=== PATIENT | male | born 1985 | race Caucasian/White ===

== ENCOUNTER 2016-02-29 10:11 | Inpatient (IN) | payer OTHER ==
[~2016-02-29] VITALS: Wt 56.5 kg
[2016-02-29] MEDS ORDERED: SOD CHLORIDE 0.9% 1,000 ML IV STA ×2 (10:47)
[2016-02-29] MEDS ORDERED: HYDROmorphONE 1 MG/ML SYG IV STA (10:47)
[2016-02-29] MEDS ORDERED: ONDANSETRON 4 MG INJ IV STA (10:47)
[2016-02-29 11:05] LABS: EOSINOPHILS % 0.1 % (0.0-7.0); HEMATOCRIT 51.7 % (42.0-52.0); HEMOGLOBIN 17.3 g/dl (14.0-18.0); LYMPHOCYTES # 2.2 10^3/ul (0.8-2.9); LYMPHOCYTES % 13.8 % (15.0-51.0); MEAN CORPUSCULAR HEMOGLOBIN 30.6 pg (29.0-33.0); MEAN CORPUSCULAR HGB CONC 33.4 g/dl (32.0-37.0); MEAN CORPUSCULAR VOLUME 91.4 fl (82.0-101.0); MEAN PLATELET VOLUME 8.9 fl (7.4-10.4); MONOCYTE # 0.7 10^3/ul (0.3-0.9); MONOCYTES % 4.4 % (0.0-11.0); NEUTROPHIL # 12.9 10^3/ul (1.6-7.5); NEUTROPHILS % 81.7 % (39.0-77.0); PLATELET COUNT 303 10^3/UL (140-440); RED BLOOD COUNT 5.66 10^6/ul (4.70-6.10); RED CELL DISTRIBUTION WIDTH 12.7 % (11.5-14.5); UNCORRECTED WBC 15.8 10^3/ul (4.8-10.8); WHITE BLOOD COUNT 15.8 10^3/ul (4.8-10.8)
[2016-02-29 11:07] LABS: CONDITION 1
[2016-02-29 11:23] LABS: ALBUMIN 5.2 g/dl (3.3-4.9)
[2016-02-29 11:24] LABS: POTASSIUM 5.8 mmol/L (3.5-5.1)
[2016-02-29 11:26] LABS: ALBUMIN/GLOBULIN RATIO 1.26; BILIRUBIN,INDIRECT 0.9 mg/dl (0-1.1); BILIRUBIN,TOTAL 0.9 mg/dl (0.2-1.3); CALCIUM 10.6 mg/dl (8.4-10.2); CREATININE 1.42 mg/dl (0.61-1.24); TOTAL PROTEIN 9.3 g/dl (6.1-8.1)
[2016-02-29] MEDS ORDERED: INSULIN REGULAR, HUMAN 100 UNIT/1 ML 3ML VIAL IV STA (11:37)
[2016-02-29] MEDS ORDERED: INSULIN REGULAR, HUMAN 100 UNIT in SOD CHLORIDE 0.9% 99 ML IV STA ×2 (11:37)
[2016-02-29] MEDS ORDERED: LANT3I SC (11:42)
[2016-02-29] MEDS ORDERED: INSU100C SQ (11:42)
[2016-02-29 12:17] LABS: ADD UMIC NO; URINE BILIRUBIN (Dip) NEGATIVE (NEGATIVE); URINE BLOOD (Dip) NEGATIVE (NEGATIVE); URINE COLOR LT. YELLOW (YELLOW); URINE GLUCOSE (Dip) NEGATIVE (NEGATIVE); URINE KETONES (Dip) 3+ (NEGATIVE); URINE LEUKOCYTE ESTERASE (Dip) NEGATIVE (NEGATIVE); URINE NITRITE (Dip) NEGATIVE (NEGATIVE); URINE TOTAL PROTEIN (Dip) NEGATIVE (NEGATIVE); URINE UROBILINOGEN (Dip) 0.2 E.U./dL (0.1-1.0)
--- NOTE | 2016-02-29 12:33 | RADRPT ---
PROCEDURE: CT Abdomen and Pelvis without contrast. CLINICAL INDICATION: Epigastric pain for 3 days with nausea and vomiting. TECHNIQUE: Multiple contiguous axial CT images of the abdomen and pelvis were obtained without the administration of intravenous contrast. Coronal and sagittal reconstructions were also performed. CTDIvol (mGy): 4.61; Total Exam DLP (mGy-cm): 253.38. One or more of the following dose reduction techniques were utilized: - Automated exposure control. - Adjustment of the mA and/or kV according to patient size. - Use of iterative reconstruction technique. COMPARISON: None. FINDINGS: Limited imaging of the lower thorax is unremarkable. The liver and spleen are homogeneous in density. The liver is diffusely low in attenuation compatibl e with fatty infiltration. The gallbladder, pancreas and adrenal glands are unremarkable. The kidneys are symmetric in size. There are no nephroureteral stones. There is no hydronephrosis o r abnormal perinephric inflammation. The abdominal aorta is normal in caliber. There is no periaortic / retroperitoneal lymphadenopathy. The stomach and small and large intestines are unremarkable. The appendix is not visualized. There are no focal inflammatory changes of the mesentery. There is no mesenteric lymphadenopathy. There is no ascites. The bladder, prostate and seminal vesicles are unremarkable. There is no free pelvic fluid. There i s no pelvic sidewall or inguinal lymphadenopathy. Skeletal structures are unremarkable. There is mild focal skin thickening with underlying fat stran ding and calcification within the subcutaneous soft tissues of the left mid abdomen. IMPRESSION: No evidence of abdominopelvic mass, lymphadenopathy or acute inflammatory pathology. Focal skin thickening with underlying fat stranding and calcification which may reflect evolving bharathi nges of fat necrosis. Correlate clinically for history of trauma and presence of palpable abnormali ty within this area. Clinical follow-up advised. RPTAT: HLST .Sabrina Segovia MD, MD Date Time Electronically viewed and signed by .Sabrina Segovia MD, on 02/29/2016 12:33 .T/
[2016-02-29] MEDS ORDERED: SOD CHLORIDE 0.9% 1,000 ML IV ONE (14:00)
--- NOTE | 2016-02-29 14:52 | ERA ---
ER Documentation Chief Complaint Date/Time DATE: 02/29/16 TIME: 14:31 Chief Complaint EPIGASTRIC PAIN FOR 2 DAYS. NO DIARRHEA. BS 526 IN TRIAGE HPI This is a 30-year-old insulin-dependent diabetic is complaining of 2 days of intractable nausea and vomiting with green bilious vomitus today. He says he has pain in the epigastric region is constant and dull. Is having 1 or 2 bouts of loose stool as well but nonbloody. No blood in his vomit. The patient says that he has not taken insulin today because he is afraid to because he is vomiting so much that he will get hypoglycemic if he can keep down food. He says he has never been in DKA. No headache no fever no chest pain cough no dysuria ROS All systems reviewed and are negative except as per history of present illness. Medications Home Meds Reported Medications Insulin Lispro (Humalog) 100 Unit/1 Ml Cartridge, 2-15 UNIT SQ AC MEALS 02/29/16 Insulin Glargine* (Lantus*) 100 Unit/Ml Soln, 40 UNIT SC QAM, #1 VIAL 02/29/16 Allergies Allergies: Coded Allergies: No Known Allergy (Unverified , 02/29/16) PMhx/Soc History of Surgery: Yes (appendix) Anesthesia Reaction: No Hx Neurological Disorder: No Hx Respiratory Disorders: No Hx Cardiac Disorders: No Hx Psychiatric Problems: No Hx Miscellaneous Medical Probl: Yes (dm) Hx Alcohol Use: No Hx Substance Use: No Hx Tobacco Use: No Smoking Status: Never smoker FmHx Family History: No coronary disease Physical Exam Vitals Vital Signs Date Time Temp Pulse Resp B/P Pulse Ox O2 Delivery O2 Flow Rate FiO2 02/29/16 14:00 18 123/85 02/29/16 10:17 97.9 130 24 103/56 98 Physical Exam Const: Well-developed, well-nourished Head: Atraumatic, normocephalic Eyes: Normal Conjunctiva, PERRLA, EOMI, normal sclera, no nystagmus ENT: Normal External Ears, Nose and Mouth, slightly dry mucus membranes. Neck: Full range of motion. No meningismus, no lymphadenopathy. Resp: Clear to auscultation bilaterally, no wheezing, rhonchi, rales Cardio: Tachycardia, no murmurs, S1 S2 present Abd: Soft, moderate epigastric tenderness non distended. Normal bowel sounds, no guarding or rebound, no pulsitile abdominal masses or bruits Skin: No petechiae or rashes, no ecchymosis , no maculopapular rash Back: No midline or flank tenderness Ext: No cyanosis, or edema, FROM x 4, normal inspection, neurovascularly intact x 4 Neur: Awake and alert, STR 5/5 x 4, sensation intact x 4, no focal findings, cerebellum intact Psych: Normal Mood and Affect Result Diagram: 02/29/16 1045 02/29/16 1225 Results 24 hrs Laboratory Tests Test 02/29/16 10:18 02/29/16 10:45 02/29/16 11:15 02/29/16 12:25 Bedside Glucose 526mg/dL Alanine Aminotransferase (ALT/SGPT) 41IU/L Albumin 5.2g/dl Albumin/Globulin Ratio 1.26 Alkaline Phosphatase 132IU/L Anion Gap 43 Aspartate Amino Transf (AST/SGOT) 32IU/L Basophils # 0.010^3/ul Basophils % 0.0% Blood Urea Nitrogen 44mg/dl Calcium Level 10.6mg/dl Carbon Dioxide Level 10mmol/L Chloride Level 93mmol/L Creatinine 1.42mg/dl Direct Bilirubin 0.00mg/dl Eosinophils # 0.010^3/ul Eosinophils % 0.1% Globulin 4.10g/dl Glucose Level 599mg/dl Hematocrit 51.7% Hemoglobin 17.3g/dl Indirect Bilirubin 0.9mg/dl Lipase 15U/L Lymphocytes # 2.210^3/ul Lymphocytes % 13.8% Mean Corpuscular Hemoglobin 30.6pg Mean Corpuscular Hemoglobin Concent 33.4g/dl Mean Corpuscular Volume 91.4fl Mean Platelet Volume 8.9fl Monocytes # 0.710^3/ul Monocytes % 4.4% Neutrophils # 12.910^3/ul Neutrophils % 81.7% Nucleated Red Blood Cells # 0.010^3/ul Nucleated Red Blood Cells % 0.0/100WBC Platelet Count 35873^3/UL Potassium Level 5.8mmol/L 5.0mmol/L Red Blood Count 5.6610^6/ul Red Cell Distribution Width 12.7% Sodium Level 140mmol/L Total Bilirubin 0.9mg/dl Total Protein 9.3g/dl White Blood Count 15.810^3/ul Urine Bilirubin NEGATIVE Urine Clarity CLEAR Urine Color LT. YELLOW Urine Glucose NEGATIVE% Urine Hemoglobin NEGATIVE Urine Ketones 3+ Urine Leukocyte Esterase NEGATIVE Urine Nitrite NEGATIVE Urine Specific [place] 1.025 Urine Total Protein NEGATIVE Urine Urobilinogen 0.2 E.U./dL Urine pH 5.5 Test 02/29/16 13:44 Bedside Glucose 500mg/dL Current Medications Medications (Trade) Dose Ordered Sig/Ena Route PRN Reason Start Time Stop Time Status Last Admin Dose Admin Sodium Chloride (NS) 1,000 ml @ 1,000 mls/hr Q1H STAT IV 02/29/16 10:47 02/29/16 11:46 DC 02/29/16 11:11 Hydromorphone HCl (Dilaudid) 1 mg ONCE STAT IV 02/29/16 10:47 02/29/16 10:49 DC 02/29/16 11:11 Ondansetron HCl 4 mg 4 mg ONCE STAT IV 02/29/16 10:47 02/29/16 10:49 DC 02/29/16 11:11 Sodium Chloride (NS) 1,000 ml @ 1,000 mls/hr Q1H STAT IV 02/29/16 10:47 02/29/16 11:46 DC 02/29/16 12:32 Insulin Human Regular 8 unit 8 unit ONCE STAT IV 02/29/16 11:37 02/29/16 11:41 DC 02/29/16 12:01 Insulin Human Regular 100 unit/ Sodium Chloride 100 ml @ 5.65 mls/hr TITRATE STAT IV 02/29/16 11:37 03/01/16 05:18 02/29/16 12:32 Sodium Chloride (NS) 1,000 ml @ 1,000 mls/hr Q1H ONCE IV 02/29/16 14:00 02/29/16 14:59 02/29/16 13:59 Procedures/MDM PROCEDURE: CT Abdomen and Pelvis without contrast. CLINICAL INDICATION: Epigastric pain for 3 days with nausea and vomiting. TECHNIQUE: Multiple contiguous axial CT images of the abdomen and pelvis were obtained without the administration of intravenous contrast. Coronal and sagittal reconstructions were also performed. CTDIvol (mGy): 4.61; Total Exam DLP (mGy-cm): 253.38. One or more of the following dose reduction techniques were utilized: - Automated exposure control. - Adjustment of the mA and/or kV according to patient size. - Use of iterative reconstruction technique. COMPARISON: None. FINDINGS: Limited imaging of the lower thorax is unremarkable. The liver and spleen are homogeneous in density. The liver is diffusely low in attenuation compatible with fatty infiltration. The gallbladder, pancreas and adrenal glands are unremarkable. The kidneys are symmetric in size. There are no nephroureteral stones. There is no hydronephrosis or abnormal perinephric inflammation. The abdominal aorta is normal in caliber. There is no periaortic / retroperitoneal lymphadenopathy. The stomach and small and large intestines are unremarkable. The appendix is not visualized. There are no focal inflammatory changes of the mesentery. There is no mesenteric lymphadenopathy. There is no ascites. The bladder, prostate and seminal vesicles are unremarkable. There is no free pelvic fluid. There is no pelvic sidewall or inguinal lymphadenopathy. Skeletal structures are unremarkable. There is mild focal skin thickening with underlying fat stranding and calcification within the subcutaneous soft tissues of the left mid abdomen. IMPRESSION: No evidence of abdominopelvic mass, lymphadenopathy or acute inflammatory pathology. Focal skin thickening with underlying fat stranding and calcification which may reflect evolving changes of fat necrosis. Correlate clinically for history of trauma and presence of palpable abnormality within this area. Clinical follow- up advised. RPTAT: HLST .Sabrina Segovia MD, MD Date Time Electronically viewed and signed by .Sabrina Segovia MD, MD on 02/29/2016 12:33 .T/ CC: LEIGHTON FOOTE DO Patient's potassium was repeated and came back at 5.0. Patient has a CO2 of 10 with elevated glucose Urine ketones +3, serum acetone pending. Patient was started on insulin and insulin drip for DKA. Critical Care: Time: 30 minutes Treatments/Evaluations: Close monitoring and treatment of unstable vital signs, cardiorespiratory, and neurologic status, while maintaining tight balance of fluid, respiratory, and cardiac interventions. Departure Diagnosis: Primary Impression: Diabetic ketoacidosis Qualified Code: E10.10 - Diabetic ketoacidosis without coma associated with type 1 diabetes mellitus Condition: LEIGHTON Dc DO Feb 29, 2016 14:52
[2016-02-29] MEDS ORDERED: SOD CHLORIDE 0.9% 1,000 ML IV SCH (16:15)
[2016-02-29] MEDS: DEXTROSE 5%-0.45% NACL 1,000 ML IV SCH (16:15)
[2016-02-29] MEDS ORDERED: DEXTROSE 50% 50 ML SYRINGE IV PRN ×2 (16:30)
[2016-02-29] MEDS ORDERED: ONDANSETRON 4 MG INJ IV PRN (16:30)
[2016-02-29] MEDS: ACCUCHECK XX SCH ×8 (17:07→23:30)
[2016-02-29 17:46] LABS: POTASSIUM 4.8 mmol/L (3.5-5.1)
[2016-02-29 17:49] LABS: CALCIUM 8.6 mg/dl (8.4-10.2); CREATININE 0.99 mg/dl (0.61-1.24)
[2016-02-29 17:50] LABS: MAGNESIUM 2.1 mg/dl (1.7-2.5); PHOSPHORUS 3.8 mg/dl (2.5-4.9)
[2016-02-29] MEDS: INSULIN REGULAR, HUMAN 100 UNIT in SOD CHLORIDE 0.9% 99 ML IV SCH ×2 (19:41)
[2016-02-29] MEDS: DOCUSATE SODIUM 100 MG CAP PO SCH (21:00)
[2016-02-29 21:14] LABS: POTASSIUM 4.5 mmol/L (3.5-5.1)
[2016-02-29 21:17] LABS: CALCIUM 8.8 mg/dl (8.4-10.2); CREATININE 0.84 mg/dl (0.61-1.24)
[2016-02-29] MEDS: FAMOTIDINE 20 MG INJ IV SCH (21:44)
--- NOTE | 2016-02-29 22:54 | HP ---
DATE OF ADMISSION: 02/29/2016 PRESENTING COMPLAINT: Epigastric pain, nausea, and vomiting for the last 3 days. HISTORY OF PRESENT ILLNESS: Walter is a 30-year-old male with a medical history only of insulin-depe ndent diabetes mellitus who presents to the emergency room with complaints of epigastric pain, nause a, and vomiting that has been worsening over the last couple of days. He was also found to have priscila vated blood sugars in triage. The patient states that he has not been taking his insulin because of the intractable nausea and vomiting and, at home, he is only on Lantus 40 units per day. He has al so had 1 or 2 episodes of diarrhea. He has had no fever. Denies chest pain, shortness of breath, o r palpitations. PAST MEDICAL HISTORY: Positive for diabetes mellitus, insulin dependent. PAST SURGICAL HISTORY: Positive only for an appendectomy. ALLERGIES: HE HAS NO KNOWN DRUG ALLERGIES. SOCIAL HISTORY: Denies tobacco, alcohol, or illicit drug use. FAMILY HISTORY: Positive for diabetes mellitus. REVIEW OF SYSTEMS: I did a 12-point review of system and pertinent findings as noted in the HPI. PHYSICAL EXAMINATION: VITAL SIGNS: Temperature 97.9, heart rate is in the 110s, respirations 18, blood pressure 123/85. Saturations 98% on room air. GENERAL: I found a young male who was alert and oriented. He was in no distress. HEENT: Head is normocephalic. Pupils are equal and reactive. There was no scleral jaundice. No c onjunctival pallor. Mucous membranes were slightly dry. The posterior pharynx was clear of erythem a or exudate. NECK: Supple. CHEST: Clear. CARDIOVASCULAR: S1 and S2, slightly tachycardic without murmurs. ABDOMEN: Soft, nontender, distended with normoactive bowel sounds. EXTREMITIES: No lower extremity edema. NEUROLOGIC: No focal deficits. SKIN: Devoid of rash or jaundice. LABORATORY VALUES: He had a leukocytosis of 15,000. His hemoglobin was elevated at 17.3, platelet count was 303. His chemistry: Potassium was high normal at 5.0 and his LFTs were unremarkable, but his serum glucose level was elevated at 599. He also had a low bicarbonate level at 10. His urina lysis had 3+ ketones and had a pH of 5.5. Lipase level was within normal limits, however. ASSESSMENT: This is a 30-year-old male with the following: Diabetes ketoacidosis in this patient w ith known type 1 diabetes mellitus. PLAN: The patient is to be admitted to the intensive care unit on the insulin drip per DKA protocol . He will be kept n.p.o. except for medications and ice chips, he will be aggressively rehydrated w ith fluids, and we will monitor his blood sugar ____. When he has closed his gap, he will be starte d on a longacting insulin again as well as put on a diabetic diet. In the interim, supportive care will include antiemetics and pain control. He will receive intravenous PPI therapy as well as SCDs for prophylaxis. Any interventions will depend on his clinical course and how he responds to curren t regimen. For further clarification, please review the patient's chart and my orders. My evaluation time has been about 45 minutes. Dictated By: CHRISTINE GRANGER MD, BA/HEIDY Conf#: [id number] DID#: [id number]
[2016-03-01] MEDS: DEXTROSE 5%-0.45% NACL 1,000 ML IV SCH (00:35)
[2016-03-01] MEDS: ACCUCHECK XX SCH ×10 (00:36→09:30)
[2016-03-01] MEDS: INSULIN REGULAR, HUMAN 100 UNIT in SOD CHLORIDE 0.9% 99 ML IV SCH ×12 (00:37→05:29)
[2016-03-01 01:37] LABS: POTASSIUM 3.7 mmol/L (3.5-5.1)
[2016-03-01 01:39] LABS: CREATININE 0.7 mg/dl (0.61-1.24)
[2016-03-01 01:40] LABS: CALCIUM 8.5 mg/dl (8.4-10.2)
[2016-03-01 04:07] LABS: POTASSIUM 3.8 mmol/L (3.5-5.1)
[2016-03-01 04:10] LABS: CREATININE 0.72 mg/dl (0.61-1.24)
[2016-03-01 04:11] LABS: CALCIUM 8.3 mg/dl (8.4-10.2)
[2016-03-01] MEDS ORDERED: INSULIN GLARGINE [LANtus] 3 ML PEN SC ONE ×2 (04:30→19:00)
[2016-03-01 06:02] LABS: BASOPHILS % 0.3 % (0.0-2.0); HEMATOCRIT 36.1 % (42.0-52.0); HEMOGLOBIN 12.3 g/dl (14.0-18.0); LYMPHOCYTES # 2.6 10^3/ul (0.8-2.9); LYMPHOCYTES % 17.4 % (15.0-51.0); MEAN CORPUSCULAR HEMOGLOBIN 30.7 pg (29.0-33.0); MEAN CORPUSCULAR HGB CONC 34.2 g/dl (32.0-37.0); MEAN CORPUSCULAR VOLUME 89.8 fl (82.0-101.0); MEAN PLATELET VOLUME 7.8 fl (7.4-10.4); MONOCYTE # 2.1 10^3/ul (0.3-0.9); MONOCYTES % 13.8 % (0.0-11.0); NEUTROPHIL # 10.2 10^3/ul (1.6-7.5); NEUTROPHILS % 68.5 % (39.0-77.0); PLATELET COUNT 257 10^3/UL (140-440); RED BLOOD COUNT 4.01 10^6/ul (4.70-6.10); RED CELL DISTRIBUTION WIDTH 12.8 % (11.5-14.5); UNCORRECTED WBC 14.9 10^3/ul (4.8-10.8); WHITE BLOOD COUNT 14.9 10^3/ul (4.8-10.8)
[2016-03-01 06:11] LABS: CONDITION 1
[2016-03-01] MEDS ORDERED: GLUCOSE GEL 15 GRAM TUBE PO PRN ×2 (07:00)
[2016-03-01] MEDS ORDERED: GLUCOSE GEL 15 GRAM TUBE BUCCAL PRN (07:00)
[2016-03-01] MEDS ORDERED: DEXTROSE 50% 50 ML SYRINGE IV PRN ×2 (07:00)
[2016-03-01] MEDS ORDERED: GLUCAGON 1 MG INJ IM PRN (07:00)
[2016-03-01] MEDS: INSULIN ASPART [NOVOLOG] 3 ML PEN SC SCH ×3 (08:00→18:25)
[2016-03-01] MEDS: DOCUSATE SODIUM 100 MG CAP PO SCH (09:00)
[2016-03-01] MEDS: FAMOTIDINE 20 MG INJ IV SCH (09:00)
[2016-03-01 14:35] VITALS: TEMP 98
[2016-03-01 15:46] VITALS: BP 111/77; PULSE 97; RESP 19
[2016-03-01] MEDS ORDERED: LANT3I SC (16:50)
[2016-03-01] MEDS ORDERED: INSU100C SQ (16:50)
--- NOTE | 2016-03-01 16:52 | PDOCDIS ---
Discharge Instructions DIAGNOSIS Discharge Diagnosis: DKA CONDITION Patient Condition: Stable ACTIVITY: Activity Restrictions: Slowly Increase Activity Rest between Activity FOLLOW UP/APPOINTMENTS Appointments Followup with your primary doctor within the next 1-2 weeks. If you don't have one please let someone know, we can give you resources that may help you pick one. You may also call your insurance company to assign one to you. Review your medication list with your nurse before leaving and if you need new prescriptions please let your nurse know. I may have made changes to your home medications or given you new prescriptions , please let your primary doctor know as well. Stay compliant with your medications and report any side effects to your PCP or pharmacist. Return to the ER if you have any concerns and cannot reach your doctors or call your insurance company, they usually have a nurse that can help you. SCHOOL/WORK RELEASE May return to School/Work on: Mar 03, 2016 May return to School/Work with: No Restrictions CHRISTINE GRANGER Mar 01, 2016 16:51
--- NOTE | 2016-03-01 17:11 | DS ---
Date/Time of Note Date/Time of Note DATE: 03/01/16 TIME: 17:08 Discharge Summary Admission/Discharge Info Admit Date/Time Feb 29, 2016 at 16:14 Discharge Date/Time 03/01/16 Final Diagnosis Diabetic Ketoacidosis . Patient Condition: Stable Consults None. . Hospital Course For details available in the chart for review, in summary this is an 30-year- old male who has been diabetic for the last 16 years, insulin-dependent, and gets his care at a local clinic. He reports having flulike symptoms and because of poor appetite chose not to take his insulin to avoid hypoglycemia. He developed intractable nausea and vomiting, he was seen in the emergency room, and found to be severely acidotic. He was admitted and aggressively managed according to the DKA protocol, and has done very well. At this time his sugars are better controlled, he is tolerating a diabetic diet, and in my assessment he stable for discharge. Home Meds Active Scripts Insulin Lispro (Humalog) 100 Unit/1 Ml Cartridge, 5 UNIT SQ AC MEALS, #30 1 Refill Prov:CHRISTINE GRANGER 03/01/16 Insulin Glargine* (Lantus*) 100 Unit/Ml Soln, 20 UNIT SC QAM for 30 Days, UNITS 1 Refill Prov:CHRISTINE GRANGER 03/01/16 Follow-up Plan Followup with your primary doctor within the next 1-2 weeks. If you don't have one please let someone know, we can give you resources that may help you pick one. You may also call your insurance company to assign one to you. Review your medication list with your nurse before leaving and if you need new prescriptions please let your nurse know. I may have made changes to your home medications or given you new prescriptions , please let your primary doctor know as well. Stay compliant with your medications and report any side effects to your PCP or pharmacist. Return to the ER if you have any concerns and cannot reach your doctors or call your insurance company, they usually have a nurse that can help you. Pending Labs Laboratory Tests Test 02/29/16 17:15 02/29/16 18:26 02/29/16 19:35 02/29/16 20:35 Anion Gap 27 (8-16) Blood Urea Nitrogen 38mg/dl (7-20) Calcium Level 8.6mg/dl (8.4-10.2) Carbon Dioxide Level 14mmol/L (21-31) Chloride Level 104mmol/L (97-110) Creatinine 0.99mg/dl (0.61-1.24) Glucose Level 338mg/dl (70-220) Magnesium Level 2.1mg/dl (1.7-2.5) Phosphorus Level 3.8mg/dl (2.5-4.9) Potassium Level 4.8mmol/L (3.5-5.1) Sodium Level 140mmol/L (135-144) Bedside Glucose 295mg/dL (70-220) 250mg/dL (70-220) 263mg/dL (70-220) Test 02/29/16 21:00 02/29/16 21:30 02/29/16 22:35 02/29/16 23:30 Anion Gap 18 (8-16) Blood Urea Nitrogen 34mg/dl (7-20) Calcium Level 8.8mg/dl (8.4-10.2) Carbon Dioxide Level 20mmol/L (21-31) Chloride Level 106mmol/L (97-110) Creatinine 0.84mg/dl (0.61-1.24) Glucose Level 239mg/dl (70-220) Potassium Level 4.5mmol/L (3.5-5.1) Sodium Level 139mmol/L (135-144) Bedside Glucose 221mg/dL (70-220) 174mg/dL (70-220) 148mg/dL (70-220) Test 03/01/16 00:31 03/01/16 01:10 03/01/16 01:30 03/01/16 02:27 Bedside Glucose 117mg/dL (70-220) 107mg/dL (70-220) 102mg/dL (70-220) Anion Gap 15 (8-16) Blood Urea Nitrogen 30mg/dl (7-20) Calcium Level 8.5mg/dl (8.4-10.2) Carbon Dioxide Level 23mmol/L (21-31) Chloride Level 107mmol/L (97-110) Creatinine 0.70mg/dl (0.61-1.24) Glucose Level 115mg/dl (70-220) Potassium Level 3.7mmol/L (3.5-5.1) Sodium Level 141mmol/L (135-144) Test 03/01/16 03:29 03/01/16 03:55 03/01/16 04:35 03/01/16 05:27 Bedside Glucose 93mg/dL (70-220) 93mg/dL (70-220) 90mg/dL (70-220) Anion Gap 12 (8-16) Blood Urea Nitrogen 29mg/dl (7-20) Calcium Level 8.3mg/dl (8.4-10.2) Carbon Dioxide Level 24mmol/L (21-31) Chloride Level 109mmol/L (97-110) Creatinine 0.72mg/dl (0.61-1.24) Glucose Level 94mg/dl (70-220) Potassium Level 3.8mmol/L (3.5-5.1) Sodium Level 141mmol/L (135-144) Test 03/01/16 05:40 03/01/16 06:25 03/01/16 13:17 03/01/16 13:40 Basophils # 0.010^3/ul (0.0-0.1) Basophils % 0.3% (0.0-2.0) Eosinophils # 0.010^3/ul (0.0-0.5) Eosinophils % 0.0% (0.0-7.0) Hematocrit 36.1% (42.0-52.0) Hemoglobin 12.3g/dl (14.0-18.0) Lymphocytes # 2.610^3/ul (0.8-2.9) Lymphocytes % 17.4% (15.0-51.0) Mean Corpuscular Hemoglobin 30.7pg (29.0-33.0) Mean Corpuscular Hemoglobin Concent 34.2g/dl (32.0-37.0) Mean Corpuscular Volume 89.8fl (82.0-101.0) Mean Platelet Volume 7.8fl (7.4-10.4) Monocytes # 2.110^3/ul (0.3-0.9) Monocytes % 13.8% (0.0-11.0) Neutrophils # 10.210^3/ul (1.6-7.5) Neutrophils % 68.5% (39.0-77.0) Nucleated Red Blood Cells # 0.010^3/ul (0.0-0.0) Nucleated Red Blood Cells % 0.0/100WBC (0.0-0.0) Platelet Count 76329^3/UL (140-440) Red Blood Count 4.0110^6/ul (4.70-6.10) Red Cell Distribution Width 12.8% (11.5-14.5) White Blood Count 14.910^3/ul (4.8-10.8) Bedside Glucose 84mg/dL (70-220) 195mg/dL (70-220) Hemoglobin A1c % (0-5.9) CHRISTINE GRANGER Mar 01, 2016 17:11
[2016-03-01 19:00] VITALS: BP 115/68; RESP 20
[2016-03-02] MEDS ORDERED: ACCUCHECK AT 2AM (Patients on SS coverage) XX SCH (02:00)
== END 2016-03-01 20:25 | disposition home or self-care (01) | DRG 639 ==
LOC: E/R 10:11 → MS2 16:14
PROVIDERS: ADMIT Family Medicine; ATTEND Family Medicine
DX: E10.10 Type 1 diabetes mellitus with ketoacidosis without coma (principal); Z79.4 Long term (current) use of insulin
CPT/HCPCS: 74176; 80048; 80053; 81003; 82010; 82962; 83036; 83690; 83735; 84100; 84132; 85025; J1170; J1815; J2405; J7030; J7042